=== PATIENT | male | born 1995 | race Asian ===

== ENCOUNTER 2017-07-31 23:41 | Emergency (ER) | payer OTHER ==
[~2017-07-31] VITALS: Ht 170.2 cm; Wt 71.5 kg
[2017-07-31 23:47] VITALS: Ht 170.2 cm; Wt 71.5 kg
[2017-07-31] MEDS ORDERED: SODIUM CHLORIDE 0.9% 1000ML 2,000 ML IV STA (23:59)
[2017-07-31] MEDS ORDERED: PSEUDOEPHEDRINE HCL 30 MG TAB PO STA (23:59)
[2017-07-31] MEDS ORDERED: ACETAMINOPHEN 500 MG TAB PO STA (23:59)
[2017-07-31] MEDS ORDERED: KETOROLAC TROMETHAMINE 30 MG/ML VIAL IV STA (23:59)
[2017-08-01 00:22] LABS: EOS % 0.2 %; EOS ABS # 0.01 K/uL (0-0.5); HEMATOCRIT 40.6 % (42-52); HEMOGLOBIN 14.2 g/dL (14.0-18.0); IG# 0.01 K/uL (0.00-0.02); LYMPH % 11.5 %; LYMPH ABS # 0.73 K/uL (1.2-3.4); MEAN CELL VOLUME 84.8 fL (80-100); MEAN CORPUSCULAR HEMOGLOBIN 29.6 pg (25-34); MEAN PLATELET VOLUME 9.3 fL (7.4-10.4); MONO % 9.4 %; NEUT % 78.7 %; NEUT ABS # 5.02 K/uL (1.4-6.5); PLATELET COUNT 174 K/uL (130-400); RED CELL DISTRIBUTION WIDTH CV 13.1 % (11.5-14.5); RED CELL DISTRIBUTION WIDTH SD 40.5 fL (36.4-46.3); WHITE BLOOD COUNT 6.37 K/uL (4.8-10.8)
[2017-08-01 00:39] LABS: CALCIUM 9.1 mg/dl (8.5-10.1); CREATININE 0.99 mg/dl (0.60-1.40); POTASSIUM 3.4 mmol/L (3.5-5.1)
[2017-08-01 01:12] LABS: INFLUENZA B ANTIGEN Neg for Influ B (NEG)
[2017-08-01 01:17] VITALS: BP 122/67; PULSE 106; TEMP 37.5; O2SAT 97
[2017-08-01] MEDS ORDERED: OSELTAMIVIR PHOSPHATE 75 MG CAP PO STA (01:22)
[2017-08-01] MEDS ORDERED: OSEL75CA12 PO (01:23)
[2017-08-01] MEDS ORDERED: ONDANSETRON HOME PACK 4MG OD TAB PO ONE (01:30)
--- NOTE | 2017-08-01 03:37 | EMERGENCY ROOM VISIT NOTE ---
History First contact with patient: 23:52 Chief Complaint: FEVER Stated Complaint: FEVER,FEEL COLD,NAUSEA History of Present Illness The patient is a 21 year old male who presents to the Emergency Room with complaints of cough, congestion, fever and chills and nausea and vomiting for the past day. Patient has recently traveled back from [place]. He is a [employer] student. Other people have been sick. Patient states he took an old antibiotic from [employer] today when he noticed he was ill. This did not help. Patient denies chest pain, dyspnea, headache, neck stiffness, abdominal pain. Review of Systems See HPI for pertinent positives & negatives. A total of 10 systems reviewed and were otherwise negative. Past Medical/Surgical History None Social History Smoking Status: Never Smoker Smokeless Tobacco Use: No Alcohol Use: none Drug Use: none Occupation Status: [employer] student Current/Historical Medications Scheduled Oseltamivir (Tamiflu), 75 MG PO BID Physical Exam Vital Signs Date Time Temp Pulse Resp B/P (MAP) Pulse Ox O2 Delivery O2 Flow Rate FiO2 08/01/17 01:17 37.5 106 16 122/67 97 Room Air 07/31/17 23:47 37.9 115 26 108/67 99 Room Air Physical Exam VITALS: Vitals are noted on the nurse's note and reviewed by myself. Vital signs febrile. GENERAL: Pleasant male mildly ill-appearing, in no acute distress, nondiaphoretic, well-developed well-nourished. SKIN: The skin was without rashes, erythema, edema, or bruising. There is no tenting of the skin. Capillary reflex less than 2 seconds. HEAD: Normocephalic atraumatic. EARS: External auditory canals clear, tympanic membranes pearly zheng without erythema or effusion bilaterally. EYES: Pupils equal round and reactive to light and accommodation. Conjunctivae without injection, sclerae without icterus. Extraocular movements intact. NOSE: Patent, turbinates without inflammation or discharge. No sinus tenderness. MOUTH: Mucous membranes mildly dry. Pharynx without erythema or exudate. Uvula midline. Airway patent. Tongue does not deviate. NECK: Supple without nuchal rigidity. No lymphadenopathy. No thyromegaly. Cervical spine is nontender. No JVD. No meningeal signs HEART: Regular rate and rhythm without murmurs gallops or rubs. LUNGS: Clear to auscultation bilaterally without wheezes, rales or rhonchi. No dullness to percussion. No retractions or accessory muscle use. ABDOMEN: Positive bowel sounds x 4. Normal tympanic percussion. Soft, nontender, without masses or organomegaly. Fritz sign negative. No guarding or rebound tenderness. MUSCULOSKELETAL: No muscle atrophy, erythema, or edema noted. NEURO: Patient was alert and oriented to person place and time. Normal sensation to light and sharp touch. No focal neurological deficits. Medical Decision & Procedures Laboratory Results 07/31/17 00:10 Red Blood Count 4.79, Mean Corpuscular Volume 84.8, Mean Corpuscular Hemoglobin 29.6, Mean Corpuscular Hemoglobin Concent 35.0, Mean Platelet Volume 9.3, Neutrophils (%) (Auto) 78.7, Lymphocytes (%) (Auto) 11.5, Monocytes (%) (Auto) 9.4, Eosinophils (%) (Auto) 0.2, Basophils (%) (Auto) 0.0, Neutrophils # (Auto) 5.02, Lymphocytes # (Auto) 0.73, Monocytes # (Auto) 0.60, Eosinophils # (Auto) 0.01, Basophils # (Auto) 0.00 07/31/17 00:10 Test 07/31/17 00:05 07/31/17 00:10 Influenza Type A Antigen POS for Influ A (NEG) Influenza Type B Antigen Neg for Influ B (NEG) White Blood Count 6.37 K/uL (4.8-10.8) Red Blood Count 4.79 M/uL (4.7-6.1) Hemoglobin 14.2 g/dL (14.0-18.0) Hematocrit 40.6 % (42-52) Mean Corpuscular Volume 84.8 fL (80-100) Mean Corpuscular Hemoglobin 29.6 pg (25-34) Mean Corpuscular Hemoglobin Concent 35.0 g/dl (32-36) Platelet Count 174 K/uL (130-400) Mean Platelet Volume 9.3 fL (7.4-10.4) Neutrophils (%) (Auto) 78.7 % Lymphocytes (%) (Auto) 11.5 % Monocytes (%) (Auto) 9.4 % Eosinophils (%) (Auto) 0.2 % Basophils (%) (Auto) 0.0 % Neutrophils # (Auto) 5.02 K/uL (1.4-6.5) Lymphocytes # (Auto) 0.73 K/uL (1.2-3.4) Monocytes # (Auto) 0.60 K/uL (0.11-0.59) Eosinophils # (Auto) 0.01 K/uL (0-0.5) Basophils # (Auto) 0.00 K/uL (0-0.2) RDW Standard Deviation 40.5 fL (36.4-46.3) RDW Coefficient of Variation 13.1 % (11.5-14.5) Immature Granulocyte % (Auto) 0.2 % Immature Granulocyte # (Auto) 0.01 K/uL (0.00-0.02) Anion Gap 10.0 mmol/L (3-11) Est Creatinine Clear Calc Drug Dose 111.3 ml/min Estimated GFR () 126.5 Estimated GFR (Non- 109.2 BUN/Creatinine Ratio 5.9 (10-20) Calcium Level 9.1 mg/dl (8.5-10.1) Medications Administered Medications (Trade) Dose Ordered Sig/Catalino Route Start Time Stop Time Status Last Admin Dose Admin Acetaminophen (Tylenol Tab) 1,000 mg NOW STAT PO 07/31/17 23:59 08/01/17 00:02 DC 08/01/17 00:19 1,000 MG Ketorolac Tromethamine (Toradol Inj) 30 mg NOW STAT IV 07/31/17 23:59 08/01/17 00:02 DC 08/01/17 00:18 30 MG Pseudoephedrine HCl (Sudafed Tab) 60 mg NOW STAT PO 07/31/17 23:59 08/01/17 00:02 DC 08/01/17 00:18 60 MG Oseltamivir Phosphate (Tamiflu Cap) 75 mg NOW STAT PO 08/01/17 01:22 08/01/17 01:23 DC 08/01/17 01:35 75 MG Ondansetron HCl (ZOFRAN ODT 4MG Home Pack) 1 homepack UD ONCE PO 08/01/17 01:30 08/01/17 01:31 DC 08/01/17 01:36 1 HOMEPACK ED Course Prior records/ancillary studies reviewed. Triage Nursing notes reviewed. Additional history obtained from friend. The patient's history was concerning for fever. Differential diagnosis: Etiologies such as viral syndrome, otitis, pharyngitis, pneumonia, influenza, meningitis, urinary tract infection, sepsis, bacteremia, as well as others were entertained. Physical examination: Patient is alert and tolerating fluids ER treatment provided: By mouth fluids, Tylenol, Toradol, Tamiflu On reassessment the patient felt better. Diagnostics interpreted by me: The labs revealed positive influenza A Imaging studies: Chest x-ray with no acute consolidation, pneumothorax or free air per my interpretation This appears to be consistent with Influenza. Patient felt much better after being medicated as above. No signs of meningitis or pneumonia. He is advised to take medicines as directed, rest, stay well-hydrated and to stay at home until he is 24 hours fever free as he is highly contagious. He was advised to follow-up health services in a few days or here in the ER sooner for high fevers , lethargy, neck stiffness, worsening signs or symptoms or as needed. Patient was tolerating fluids. He was ambulatory without difficulties. By the evaluation outlined above emergent etiologies such as otitis, pharyngitis, pneumonia, meningitis, urinary tract infection, sepsis, bacteremia, as well as others were deemed relatively unlikely. The pt informed about the findings as listed above. All questions were answered and pleased with the treatment. Return instructions were outlined and the patient was discharged in stable condition. Outpatient prescription management: Tamiflu Referral: The patient was referred back to their primary care physician for follow-up in 2 to 3 days for a recheck of the current condition. Case reviewed by attending Medical Decision As above Medication Reconcilliation Current Medication List: was personally reviewed by me Blood Pressure Screening Patient's blood pressure: Normal blood pressure Impression Primary Impression: Influenza Departure Information Dispostion Home / Self-Care Condition GOOD Prescriptions Oseltamivir (Tamiflu) 75 Mg Cap 75 MG PO BID for 5 Days, #10 CAP Prov: Crystal Shannon PA-C 08/01/17 Forms HOME CARE DOCUMENTATION FORM, School Instructions, Return To School: 3 days IMPORTANT VISIT INFORMATION Patient Instructions My [facility], ED Flu Additional Instructions Tamiflu 75 m tablet twice a day for 5 days.Any medication can cause an allergic reaction, stop the pills immediately and return to the ER for rash, hives, breathing difficulties, or swelling. Acetaminophen(Tylenol) may be used for fever or pain. Use 1000mg every six hours as needed. Avoid using more than 3000mg in a 24 hour period. (AND/OR) Ibuprofen(Motrin, Advil) may be used for fever or pain. Use 600mg every six hours as needed. Take with food. Avoid using more than 2400mg in a 24 hour period. Do not use 2400mg per day for more than three consecutive days without physician direction. Prolonged inappropriate use can lead to stomach upset or ulcers. Afrin nasal spray: 2-3 sprays to each nostril twice daily as needed for congestion. Do not use for more than 3-4 days because it can lead to worsening rebound congestion. Pseudoephedrine(Sudaphed): 30-60mg every 6 hours as needed for nasal congestion. Do not take this with other stimulant products or supplements. Rest and drink plenty of fluids. Controlling your fever with Tylenol and Ibuprofen as above will make you feel better. Wash your hands after nose blowing, sneezing, or coughing. Most germs are spread through contact, therefore improper hygiene may result in your close contacts and loved ones becoming ill just like you. Continue current medications. Return to the ER for severe headache, neck stiffness, chest pain, difficulty breathing, fevers, vomiting, worsening of your condition, or as needed. Follow up with your primary physician this week for a recheck of your current condition. School Instructions Return To School: 3 days
--- NOTE | 2017-08-01 07:43 | DIAGNOSTIC IMAGING REPORT ---
TWO VIEW CHEST CLINICAL HISTORY: Cough and fever. FINDINGS: PA and lateral chest radiographs are obtained No prior studies are available for comparison at the time of dictation. The cardiomediastinal silhouette is unremarkable. The lungs and pleural spaces are clear. There is no pneumothorax. The bony thorax appears intact. IMPRESSION: No active disease in the chest. Electronically signed by: Milan Rodriguez M.D. 08/01/2017 7:41 AM Dictated Date/Time: 08/01/2017 7:41 AM
== END 2017-08-01 01:40 | disposition home or self-care (01) ==
LOC: C.EDB 23:43 → EDBD 23:43 → C.EDB 08-01 01:40
DX: J11.1 Influenza due to unidentified influenza virus with other respiratory manifestations (principal)